=== PATIENT | female | born 1960 | race Two or more races ===

== ENCOUNTER 2019-07-06 16:12 | Inpatient (IN) | payer OTHER ==
[~2019-07-06] VITALS: Ht 149.9 cm; Wt 65.8 kg
[2019-07-17] MEDS ORDERED: COZAAR100 MG PO (13:05)
[2019-07-17] MEDS ORDERED: PRILOSEC OTC20 MG PO (13:06)
[2019-07-17] MEDS ORDERED: THREONINE PO (13:06)
[2019-07-17] MEDS ORDERED: ADALAT CC30 MG PO (13:07)
[2019-07-17] MEDS ORDERED: TOPROL XL25 M1 PO (13:07)
[2019-07-17] MEDS ORDERED: VITAMIN C500 M6 PO (13:08)
[2019-07-17] MEDS ORDERED: PROBIOTIC1 EAC4 PO (13:08)
[2019-08-03] MEDS ORDERED: ULTRACET PO (16:23)
[2019-08-03] MEDS ORDERED: POLY119PG PO (16:23)
[2019-08-03] MEDS ORDERED: CARAFATE1 GM/10 ML PO (16:24)
[2019-08-03] MEDS ORDERED: SIMETHICONE80 MG PO (16:24)
[2019-08-03] MEDS ORDERED: PEPCID AC20 MG PO (16:24)
== END 2019-08-03 18:13 | disposition home or self-care (01) | DRG 326 ==
LOC: SURG 07-26 07:00 → O/R 08-02 05:25 → SURG 08-02 14:38
PROVIDERS: ADMIT Surgery
PROC: 0DS64ZZ Reposition Stomach, Percutaneous Endoscopic Approach (ICD-10-PCS; 2019-08-02)
PROC: 0D948ZZ Drainage of Esophagogastric Junction, Via Natural or Artificial Opening Endoscopic (ICD-10-PCS; 2019-08-02)
PROC: 0BUT4JZ Supplement Diaphragm with Synthetic Substitute, Percutaneous Endoscopic Approach (ICD-10-PCS; principal; 2019-08-02 07:15)
PROC: 0WUF4JZ Supplement Abdominal Wall with Synthetic Substitute, Percutaneous Endoscopic Approach (ICD-10-PCS; 2019-08-02 07:15)
DX: K44.0 Diaphragmatic hernia with obstruction, without gangrene (principal); K56.2 Volvulus; K42.0 Umbilical hernia with obstruction, without gangrene; K21.0 Gastro-esophageal reflux disease with esophagitis; K22.8 Other specified diseases of esophagus